=== PATIENT | male | born 1965 | race Two or more races ===

== ENCOUNTER 2024-07-12 17:01 | Emergency (ER) | payer OTHER ==
[~2024-07-12] VITALS: Ht 167.6 cm; Wt 77.7 kg
--- NOTE | 2024-07-12 17:17 | ECG ---
[facility] Test Date: 2024-07-12 Test Time: 17:16:50 Pat Name: HALLIE ZAPATA Department: ER Room: Gender: M Pit Steward: JD : 1965 Requested By: LYNDSEY BRUMFIELD Order Number: [id number] Reading MD: Sylvain Harmon Measurements Intervals [place] Rate: 90 P: 55 GA: 170 QRS: 44 QRSD: 102 T: 37 QT: 348 QTc: 426 Interpretive Statements Sinus rhythm ST elevation, consider inferior injury Electronically Signed On 07-14-2024 16:15:54 PST by Sylvain Harmon Please click the below link to view image of tracing.
--- NOTE | 2024-07-12 17:28 | ED.PDOC ---
HPI Comments HPI: Poor Historian. 59-year-old male presents to the emergency department for evaluation of right- sided ache. He points to his right headache right shoulder right upper extremity and right lower extremity as well. Patient states the symptoms started in the last two days. Patient states having history of hypertension but does not check it at home. He states compliance with his medications for hypertension. Patient was found with elevated blood pressure 150s systolic over 105 diastolic here in the ED. Patient denies any chest pain or shortness of breath or any other acute symptoms. He does mention having some slight right eye blurry vision with the symptoms. No focal neurological deficits. Past Medcial History: Hypertension, hyperlipidemia Past Surgical History: Appendectomy REVIEW OF SYSTEMS: CONSTITUTIONAL: Denies acute: fever, diaphoresis, chills, generalized weakness. HEAD: Denies acute: photophobia Eyes: Denies acute: Double vision, vision loss, eye pain, eye discharge. EARS: Denies acute: tinnitus, hearing loss, ear discharge, ear pain, THROAT: Denies acute: sore throat, swelling, difficulty swallowing , pain with swallowing, change in voice. NECK: Denies acute: neck pain, neck swelling, stiff neck. HEART: Denies acute : chest pain, palpitations, LUNGS: Denies acute: SOB, wheezing, cough, hemoptysis ABDOMEN: Denies acute: abdominal pain, Nausea, Vomiting, diarrhea, melena , hematemesis, hematochezia SKIN: Denies acute: rash, redness, lesions, itchiness. EXTREMITIES: Denies acute: calf pain, numbness, tingling, weakness, Denies acute: Low back pain. Neuro: Denies acute: focal neurological deficit, motor or sensory focal neurological deficit, tremors, seizure like activity, confusion, dizziness, change in mental status, loss of bowel or bladder function, cauda equina like symptoms. : Denies acute: dysuria, hematuria, flank pain, increase in urinary frequency. PSYCH: Denies acute: hallucination, suicidal ideation, homicidal ideation. PHYSICAL EXAM: General: no acute distress, awake and alert. Head: normocephalic, atraumatic. Neck: supple, trachea is midline, no swelling. Throat: Normal phonation. Eyes:, no erythema, no purulent discharge, no proptosis, no icterus. Heart: regular tachycardic, no significant murmur appreciated. Lungs: no apparent respiratory distress, Able to speak in full sentences. No wheezing, no rhonchi, no crackles. No stridors Clear to auscultation bilaterally. Abdomen: non tender to palpation, non distended, soft, no guarding, no rebound, + bowel sounds. Neuro: Awake, Alert, oriented to name, self, situation, follows commands GCS=15. Speech is normal. Skin: no petechia, no purpura, no cyanosis, non-pale, not jaundice. Lower extremities: --no - Pitting edema no deformity, no focal swelling, no calf TTP. Makes eye contact. moves all four extremities. Face: no apparent facial droop. Ambulating in the ED independently. Stroke: finger to nose cerebellar testing is intact. No pronator drift. PERRLA, EOM-I CN 2-12 are grossly intact, No nystagmus. No nuchal rigidity, Kernig's sign, Brudzinski's sign, no meningeal signs. Chief Complaint: Right Sided Weakness Time Seen by MD: 17:11 Primary Care Provider: LYNDSEY Alvares Notes: Nurses Notes, Medications, Allergies Allergies: Coded Allergies: NO KNOWN ALLERGIES (Unverified , 07/12/24) Information Source: Patient Mode of Arrival: Ambulatory CP Differential Dx Differential Diagnosis: N/A Differential Diagnosis: Other (DDX include renal disease, thyroid disease, electrolyte abnormality, increased salt intake, medications non-compliance, undiagnosed HTN, Hypertensive crisis, hypertensive urgency., drug toxicity.) X-Ray, Labs, Meds, VS Vital Signs Date Time Temp Pulse Resp B/P (MAP) Pulse Ox O2 Delivery O2 Flow Rate FiO2 07/12/24 22:14 150/103 07/12/24 22:12 98 20 98 Room Air 07/12/24 22:12 98.2 98 20 150/103 (119) 98 98.2 07/12/24 20:58 150/103 07/12/24 20:00 98.1 86 18 144/90 (108) 96 98.1 07/12/24 19:58 144/90 07/12/24 17:16 90 07/12/24 17:05 98.6 106 18 158/103 (121) 100 Lab Test 07/12/24 20:53 07/12/24 17:30 Range/Units Troponin I High Sensitivity < 3 L < 3 L </=54 ng/L White Blood Count 5.0 4.4-10.8 10^3/uL Red Blood Count 4.88 4.5-5.90 10^6/uL Hemoglobin 15.4 13.5-17.5 g/dL Hematocrit 45.2 41.0-53.0 % Mean Corpuscular Volume 92.6 80.0-100.0 fL Mean Corpuscular Hemoglobin 31.4 28.0-32.0 pg Mean Corpuscular Hemoglobin Concent 34.0 32.0-36.0 g/dL Red Cell Distribution Width 12.6 11.8-14.3 % Platelet Count 259 140-450 10^3/uL Mean Platelet Volume 7.0 6.9-10.8 fL Neutrophils (%) (Auto) 61.5 37.0-80.0 % Lymphocytes (%) (Auto) 27.8 10.0-50.0 % Monocytes (%) (Auto) 8.7 0.0-12.0 % Eosinophils (%) (Auto) 1.3 0.0-7.0 % Basophils (%) (Auto) 0.7 0.0-2.0 % Neutrophils # (Auto) 3.1 1.6-8.6 10 ^3/uL Lymphocytes # (Auto) 1.4 0.4-5.4 10 ^3/uL Monocytes # (Auto) 0.4 0-1.3 10 ^3/uL Eosinophils # (Auto) 0.1 0-0.8 10 ^3/uL Basophils # (Auto) 0 0-0.2 10 ^3/uL Nucleated Red Blood Cells 0.2 % Sodium Level 142 136-145 mmol/L Potassium Level 4.1 3.5-5.1 mmol/L Chloride Level 104 98-107 mmol/L Carbon Dioxide Level 28 20-31 mmol/L Anion Gap 10 5-15 Blood Urea Nitrogen 11 9-23 mg/dL Creatinine 0.96 0.700-1.30 mg/dL Glomerular Filtration Rate Calc 92 >90 mL/min BUN/Creatinine Ratio 11.5 10.0-20.0 Serum Glucose 110 H 74-106 mg/dL Calcium Level 10.2 8.7-10.4 mg/dL Magnesium Level 2.1 1.6-2.6 mg/dL Total Bilirubin 0.8 0.2-1.0 mg/dL Aspartate Amino Transferase (AST) 22 13-40 U/L Alanine Aminotransferase (ALT) 36 7-40 U/L Alkaline Phosphatase 88 46-116 U/L B-Type Natriuretic Peptide 10.36 0-100 pg/mL Total Protein 8.0 5.7-8.2 g/dL Albumin 4.9 H 3.2-4.8 g/dL Current Medications Medications (Trade) Dose Ordered Sig/Humberto Route Start Time Stop Time Status Last Admin Nitroglycerin (Ntrostat Sublingual) 0.4 mg ONCE ONCE SL 07/12/24 17:30 07/12/24 17:31 DC 07/12/24 19:58 Nitroglycerin (Ntrostat Sublingual) 0.4 mg ONCE ONCE SL 07/12/24 22:00 07/12/24 22:03 DC 07/12/24 22:14 [place] [id number] Ph: [phone] DIAGNOSTIC IMAGING Diagnostic Imaging Report : [id number] Signed PATIENT: HALLIE ZAPATA ACCT: [id number] UNIT: [id number] : 1965 LOC: ER ROOM / BED: / AGE / SEX: 59 / M ADM STATUS: REG ER SERVICE 11 ORDERING PHYSICIAN: LYNDSEY BRUMFIELD DO PROCEDURE(s): HWOCT - HEAD WITHOUT CONTRAST REASON: HTN, RIGHT SIDED NUMBNESS ORDER NUMBER(s): [id number], ACCESSION NUMBER(s): [id number] EXAM: CT Head Without Intravenous Contrast CLINICAL INDICATION: HTN, RIGHT SIDED NUMBNESS TECHNIQUE: Axial computed tomography images of the head/brain without intravenous contrast. This CT exam was performed using one or more of the following dose reduction techniques: automated exposure control, adjustment of the mA and/or kV according to patient size, and/or use of iterative reconstruction technique. RADIATION DOSE: CTDlvol= 54 mGy, DLP= 867.48 mGy-cm COMPARISON: None FINDINGS: BRAIN AND EXTRA-AXIAL SPACES: Unremarkable. No significant white matter disease. No acute intracranial hemorrhage, midline shift or mass effect. BONES/JOINTS: Unremarkable. No acute fracture. SOFT TISSUES: Unremarkable. SINUSES: Mucosal thickening of the ethmoid sinuses, likely sinus disease. MASTOID AIR CELLS: Unremarkable as visualized. No mastoid effusion. OTHER FINDINGS: . . IMPRESSION: No acute intracranial hemorrhage, midline shift or mass effect. HS:Y ATED BY: JULIUS MIGUEL MD DICTATED DATE/TIME: 07/12/241831 SIGNED BY: JULIUS MIGUEL MD SIGNED DATE/TIME: 07/12/241831 CC: [place] [id number] Ph: [phone] DIAGNOSTIC IMAGING Diagnostic Imaging Report : [id number] Signed PATIENT: HALLIE ZAPATA ACCT: [id number] UNIT: [id number] : 1965 LOC: ER ROOM / BED: / AGE / SEX: 59 / M ADM STATUS: REG ER SERVICE 11 ORDERING PHYSICIAN: LYNDSEY BRUMFIELD DO PROCEDURE(s): CXR2 - CHEST TWO VIEWS ROUTINE REASON: HTN ORDER NUMBER(s): [id number], ACCESSION NUMBER(s): [id number] EXAM: XY CHEST TWO VIEWS ROUTINE TECHNIQUE: Two radiographic views of the chest CLINICAL HISTORY: HTN COMPARISON: None Findings/Impression: Frontal and lateral chest radiographs demonstrate no acute osseous or edwards perficial soft tissue abnormalities. The trachea is midline. The cardiac silhouette and mediastinum are within normal limits. No pneumothorax, pleural effusions, or consolidations. ATED BY: TEREZA DODD DO DICTATED DATE/TIME: 07/12/241853 SIGNED BY: TEREZA DODD DO SIGNED DATE/TIME: 07/12/241853 CC: [place] [id number] Ph: [phone] DIAGNOSTIC IMAGING Diagnostic Imaging Report : [id number] Signed PATIENT: HALLIE ZAPATA ACCT: [id number] UNIT: [id number] : 1965 LOC: ER ROOM / BED: / AGE / SEX: 59 / M ADM STATUS: REG ER SERVICE 11 ORDERING PHYSICIAN: LYNDSEY BRUMFIELD DO PROCEDURE(s): CXR2 - CHEST TWO VIEWS ROUTINE REASON: HTN ORDER NUMBER(s): [id number], ACCESSION NUMBER(s): [id number] EXAM: XY CHEST TWO VIEWS ROUTINE TECHNIQUE: Two radiographic views of the chest CLINICAL HISTORY: HTN COMPARISON: None Findings/Impression: Frontal and lateral chest radiographs demonstrate no acute osseous or superficial soft tissue abnormalities. The trachea is midline. The cardiac silhouette and mediastinum are within normal limits. No pneumothorax, pleural effusions, or consolidations. ATED BY: TEREZA DODD DO DICTATED DATE/TIME: 07/12/241853 SIGNED BY: TEREZA DODD DO SIGNED DATE/TIME: 07/12/241853 CC: Time of 1ST Reevaluation: 23:45 (Patient was given nitroglycerin for blood pressure control while he is waiting in the treatment area. His blood pressure improved and all his symptoms have resolved due to improvement his blood pressure.) Reevaluation 1ST: Resolved Patient Education/Counseling: Diagnosis, Treatment Family Education/Counseling: No Family Present Comments Patient presented with the above HPI.---right-sided pain with setting of hypertensive urgency---workup was initiated. patient was found with the above mentioned diagnosis. Patient was given: Nitroglycerin sublingual Patient ED course and VS have been stabilized. Patient has been reassessed in the ED and remained in a stable condition. Pertinent incidental findings were discussed with the patient and/or family. Patient/family voices understanding and is agreeable with plan. Patient has been observed in the ED adequate length of time to insure improvement/stability. patient was discharged home symptoms free after blood pressure was well control led. All the reports of any imaging studies that were ordered by myself were reviewed by myself. Departure 1 Departure Time of Disposition: 23:43 Impression: Primary Impression: Hypertensive crisis Additional Impressions: Right arm pain Right leg pain Disposition: 01 HOME / SELF CARE / HOMELESS Condition: Stable Additional Instructions: Additional discharge instructions: You MUST follow-up with your primary care/family doctor in 1 to 2 days. If you are unable to see your primary care/family doctor, please return to our emergency room for re-assessment and re-evaluation in 1 to 2 days. Return to the emergency room here in our facility or to the nearest ER [facility] if your symptoms change or worsen. CONSULTATIONS: you MUST Follow-up for consultation as soon as possible with: -cardiology in 1-2 days. Please call for appointment You MUST call the consultants office yourself to make an appointment. You may need to arrange that through your insurance and/or your primary/family doctor. If you are unable to see the talent development consultant in 1 to 2 days, you must return to our emergency room (or any other ER of your choice) for re-assessment and re- evaluation. Adequate fluid hydration. Monitor blood pressure at home at least 3 times a day. Salt restrictions. Discharged With: Self Critical Care Note Critical Care Time?: Yes (35 min-critical care time only) Heart Score Heart Score: Heart Score Response (Comments) Value History Slightly Suspicious 0 EKG Normal 0 Age 45-64 1 Risk Factors 1 or 2 risk factors 1 Troponin Normal limit 0 Total 2 I personally scribed for LYNDSEY BRUMFIELD DO ([email or web address]) on 07/12/24 at 21:39. Electronically submitted by Link Bauman ([email or web address]). I personally scribed for LYNDSEY BRUMFIELD DO ([email or web address]) on 07/12/24 at 21:40. Electronically submitted by Link Bauman ([email or web address]). LYNDSEY BRUMFIELD DO Jul 12, 2024 17:28
[2024-07-12 17:57] LABS: Basophils # (auto) 0 10 ^3/uL (0-0.2); Basophils % (auto) 0.7 % (0.0-2.0); Eosinophils # (auto) 0.1 10 ^3/uL (0-0.8); Eosinophils % (auto) 1.3 % (0.0-7.0); Hematocrit 45.2 % (41.0-53.0); Hemoglobin 15.4 g/dL (13.5-17.5); Lymphocytes # (auto) 1.4 10 ^3/uL (0.4-5.4); Lymphocytes % (auto) 27.8 % (10.0-50.0); Mean Corpuscular Hemoglobin 31.4 pg (28.0-32.0); Mean Corpuscular Volume 92.6 fL (80.0-100.0); Monocytes # (auto) 0.4 10 ^3/uL (0-1.3); Monocytes % (auto) 8.7 % (0.0-12.0); Neutrophils # (auto) 3.1 10 ^3/uL (1.6-8.6); Neutrophils % (auto) 61.5 % (37.0-80.0); Nucleated Red Blood Cells % 0.2 %; Platelet Count (auto) 259 10^3/uL (140-450); Red Blood Cells 4.88 10^6/uL (4.5-5.90); Red Cell Distribution Width 12.6 % (11.8-14.3)
[2024-07-12 18:16] LABS: Alanine Aminotransferase 36 U/L (7-40); Alkaline Phosphatase 88 U/L (46-116); Anion Gap 10 (5-15); Aspartate Aminotransferase 22 U/L (13-40); BUN/Creatinine Ratio 11.5 (10.0-20.0); Blood Urea Nitrogen 11 mg/dL (9-23); Calcium 10.2 mg/dL (8.7-10.4); Carbon Dioxide 28 mmol/L (20-31); Chloride 104 mmol/L (98-107); Glucose 110 mg/dL (74-106); Magnesium 2.1 mg/dL (1.6-2.6); Potassium 4.1 mmol/L (3.5-5.1); Sodium 142 mmol/L (136-145)
[2024-07-12 18:17] LABS: Albumin 4.9 g/dL (3.2-4.8); Bilirubin, Total 0.8 mg/dL (0.2-1.0)
--- NOTE | 2024-07-12 18:34 | DVH ---
EXAM: CT Head Without Intravenous Contrast CLINICAL INDICATION: HTN, RIGHT SIDED NUMBNESS TECHNIQUE: Axial computed tomography images of the head/brain without intravenous contrast. This CT exam was performed using one or more of the following dose reduction techniques: automated exposure control, adjustment of the mA and/or kV according to patient size, and/or use of iterative reconstru ction technique. RADIATION DOSE: CTDlvol= 54 mGy, DLP= 867.48 mGy-cm COMPARISON: None FINDINGS: BRAIN AND EXTRA-AXIAL SPACES: Unremarkable. No significant white matter disease. No acute intracra nial hemorrhage, midline shift or mass effect. BONES/JOINTS: Unremarkable. No acute fracture. SOFT TISSUES: Unremarkable. SINUSES: Mucosal thickening of the ethmoid sinuses, likely sinus disease. MASTOID AIR CELLS: Unremarkable as visualized. No mastoid effusion. OTHER FINDINGS: . . IMPRESSION: No acute intracranial hemorrhage, midline shift or mass effect. HS:Y
--- NOTE | 2024-07-12 18:56 | DVH ---
EXAM: XY CHEST TWO VIEWS ROUTINE TECHNIQUE: Two radiographic views of the chest CLINICAL HISTORY: HTN COMPARISON: None Findings/Impression: Frontal and lateral chest radiographs demonstrate no acute osseous or superficial soft tissue abnorma lities. The trachea is midline. The cardiac silhouette and mediastinum are within normal limits. No pneumothorax, pleural effusions, or consolidations.
[2024-07-12] MEDS: NITROGLYCERIN 0.4 MG SL TAB SL ONE ×2 (19:58→22:14)
[2024-07-12 22:12] VITALS: BP 150/103; PULSE 98; RESP 20; TEMP 98.2; O2SAT 98
[2024-07-13] MEDS: NITROGLYCERIN 0.4 MG SL TAB SL ONE (00:01)
== END 2024-07-13 00:20 | disposition home or self-care (01) ==
LOC: ER 17:01
DX: I16.9 Hypertensive crisis, unspecified (principal); M79.601 Pain in right arm; M79.604 Pain in right leg; I10 Essential (primary) hypertension; E78.5 Hyperlipidemia, unspecified; Z90.49 Acquired absence of other specified parts of digestive tract
CPT/HCPCS: 36415; 70450; 71046; 80053; 83735; 83880; 84484; 85025; 93005